=== PATIENT | female | born 1955 | race Caucasian/White ===

== ENCOUNTER 2020-11-25 08:11 | Outpatient (CLI) | payer BC ==
[2020-11-25] MEDS ORDERED: OMNIPAQUE 350 MG/ML, 100ML BOTTLE ONE (08:44)
== END 2020-11-25 23:59 | disposition home or self-care (01) ==
LOC: RAD 08:11
PROVIDERS: ATTEND Internal Medicine
DX: N85.9 Noninflammatory disorder of uterus, unspecified (principal); D72.819 Decreased white blood cell count, unspecified; R63.4 Abnormal weight loss
CPT/HCPCS: 71260; 74177; Q9967